=== PATIENT | female | born 1965 | race Caucasian/White ===

== ENCOUNTER 2020-10-25 15:18 | Emergency (ER) | payer OTHER ==
[2020-10-25] MEDS ORDERED: NORCO 5-325 TA1 EACH PO (17:26)
== END 2020-10-25 17:40 | disposition home or self-care (01) ==
LOC: FER 15:18
DX: S42.254A Nondisplaced fracture of greater tuberosity of right humerus, initial encounter for closed fracture (principal); W07.XXXA Fall from chair, initial encounter; Y92.009 Unspecified place in unspecified non-institutional (private) residence as the place of occurrence of the external cause; Z88.0 Allergy status to penicillin
CPT/HCPCS: 73030